=== PATIENT | female | born 1965 | race Caucasian/White ===

== ENCOUNTER 2018-07-11 14:34 | Outpatient (CLI) | payer BC ==
--- NOTE | 2018-07-11 15:54 | RAD ---
RIGHT FOOT RADIOGRAPHS 3 VIEWS: DATE: 07/11/2018. PROVIDED CLINICAL HISTORY: Right foot pain. FINDINGS: There is no evidence for fracture or other acute osseous abnormality. Alignment appears anatomic. J oint spaces appear preserved. Small plantar calcaneal enthesophyte. IMPRESSION: No evidence for an acute osseous abnormality or significant arthropathy. POS: TPC
== END 2018-07-11 14:35 | disposition home or self-care (01) ==
LOC: BICRAD 14:34
PROVIDERS: ATTEND Family Medicine
DX: M79.671 Pain in right foot (principal)

== ENCOUNTER 2018-08-14 08:08 | Outpatient (CLI) | payer BC ==
--- NOTE | 2018-08-14 09:10 | MMO ---
Bilateral MAMMO Bilat Screen [facility]. CLINICAL HISTORY: Patient is 52 years old and is seen for screening. The patient has no family history of breast cancer. The patient has no personal history of cancer. VIEWS: The views performed were: bilateral craniocaudal with tomosynthesis and bilateral mediolateral oblique with tomosynthesis. FILMS COMPARED: The present examination has been compared to prior imaging studies performed at [facility] on 07/19/2011 and 07/22/2013. MAMMOGRAM FINDINGS: There are scattered fibroglandular densities. There are no suspicious masses, calcifications or areas of architectural distortion. IMPRESSION: THERE IS NO MAMMOGRAPHIC EVIDENCE OF MALIGNANCY. A ROUTINE FOLLOW-UP MAMMOGRAM IN 1 YEAR IS RECOMMENDED. THE RESULTS OF THIS EXAM WERE SENT TO THE PATIENT. ACR BI-RADS Category 1 - Negative MAMMOGRAPHY NOTE: 1. A negative mammogram report should not delay a biopsy if a dominant of clinically suspicious mass is present. 2. Approximately 10% to 15% of breast cancers are not detected by mammography. 3. Adenosis and dense breasts may obscure an underlying neoplasm.
== END 2018-08-14 08:09 | disposition home or self-care (01) ==
LOC: BICMAMMO 08:08
PROVIDERS: ATTEND Physician Assistant
DX: Z12.31 Encounter for screening mammogram for malignant neoplasm of breast (principal)
CPT/HCPCS: 77063; 77067

== ENCOUNTER 2018-09-09 14:00 | Outpatient (CLI) | payer BC | END 2018-09-09 14:01 | disposition home or self-care (01) | LOC: DTY/OP 14:00 | PROVIDERS: ATTEND Surgery | DX: E66.01 Morbid (severe) obesity due to excess calories (principal) | CPT/HCPCS: 97802 ==

== ENCOUNTER 2018-10-03 08:00 | Inpatient (IN) | payer BC ==
[2018-10-07] MEDS ORDERED: Fentanyl 100 MCG/2 ML VIAL ONE ×3 (10:45→14:03)
[2018-10-07] MEDS ORDERED: Midazolam HCl 2 mg/2 ml Vial ONE ×2 (10:45→11:01)
[2018-10-07] MEDS ORDERED: Heparin 5,000 UNITS/ML VIAL ONE (11:01)
[2018-10-07] MEDS ORDERED: Bupivacaine/Epinephrine 0.25% 30 ML VIAL ONE ×2 (11:41→12:15)
[2018-10-07] MEDS ORDERED: Propofol 500 MG/50 ML VIAL ONE (11:47)
[2018-10-07] MEDS ORDERED: hydrALAZINE 20 MG/ML VIAL SLOW IVP PRN (13:22)
[2018-10-07] MEDS ORDERED: diphenhydrAMINE 50 MG/ML VIAL IVP PRN ×2 (13:22→14:00)
[2018-10-07] MEDS ORDERED: Ondansetron PF 4 MG/2 ML Vial IVP PRN (13:22)
[2018-10-07] MEDS ORDERED: Hydrocodone-Acetamin 15 ML UDCUP PO PRN ×2 (13:22→14:07)
[2018-10-07] MEDS ORDERED: Dextrose 5% in Water 1,000 ML IV PRN (13:22)
[2018-10-07] MEDS ORDERED: Promethazine HCl 25 MG/ML VIAL IM PRN ×4 (13:22→14:00)
[2018-10-07] MEDS ORDERED: Dextrose 50% Abboject 50 ML SYRINGE SLOW IVP PRN (13:22)
[2018-10-07] MEDS ORDERED: Promethazine HCl 25 MG/ML VIAL ONE (13:34)
[2018-10-07] MEDS ORDERED: Ondansetron PF 4 MG/2 ML Vial ONE (13:58)
[2018-10-07] MEDS ORDERED: Ondansetron HCl/PF 4 MG/2 ML Vial IVP PRN ×2 (13:59→14:00)
[2018-10-07] MEDS ORDERED: Promethazine HCl 25 MG/ML VIAL SLOW IVP PRN ×2 (13:59→14:00)
[2018-10-07] MEDS ORDERED: diphenhydrAMINE 50 MG/ML VIAL IM PRN (14:00)
[2018-10-07] MEDS ORDERED: fentaNYL Citrate/PF 2,000 MCG in Sodium Chloride 0.9% 60 ML IV PRN (14:00)
[2018-10-07] MEDS ORDERED: diphenhydrAMINE 25 MG CAP PO PRN (14:00)
[2018-10-07] MEDS ORDERED: Communication Order-Pharmacy FS SCH (14:00)
[2018-10-07] MEDS ORDERED: Naloxone HCl 0.4 mg/ml Vial IV PRN (14:00)
[2018-10-07] MEDS ORDERED: Zolpidem Tartrate 5 MG TAB PO PRN ×2 (14:00→14:24)
[2018-10-07] MEDS ORDERED: D5 1/2 NS w/20 mEq KCL 1,000 ML ONE (14:41)
[2018-10-07] MEDS: D5 1/2 NS w/20 mEq KCL 1,000 ML IV SCH ×2 (15:05→20:08)
[2018-10-07 17:06] VITALS: BMI 44.9
[2018-10-07] MEDS: Ketorolac Tromethamine 30 MG/ML VIAL IVP SCH ×2 (18:23→23:58)
[2018-10-07] MEDS: CEFAZOLIN 2 GM in Premix Bag 1 BAG IVPB SCH (20:05)
[2018-10-07] MEDS: Ondansetron PF 4 MG/2 ML Vial IVP PRN (22:08)
[2018-10-08] MEDS: CEFAZOLIN 2 GM in Premix Bag 1 BAG IVPB SCH (04:15)
[2018-10-08] MEDS: Ondansetron PF 4 MG/2 ML Vial IVP PRN (04:15)
[2018-10-08] MEDS: Ketorolac Tromethamine 30 MG/ML VIAL IVP SCH ×4 (06:19→23:36)
[2018-10-08] MEDS: D5 1/2 NS w/20 mEq KCL 1,000 ML IV SCH ×3 (06:25→20:55)
[2018-10-08 06:45] LABS: #Lymphocytes 1.6 thou/uL (1.20-3.40); #Monocytes 0.6 thou/uL (0.11-0.59); %Eosinophils 0.2 % (0.0-10.0); %Lymphocytes 13.9 % (21.0-51.0); %Monocytes 5.6 % (0.0-10.0); %Neutrophils 80.3 % (42.0-75.0); Hemoglobin 13.6 g/dL (12.0-16.0); Mean Corpuscular HGB CONC 32.3 g/dL (32.0-36.0); Mean Corpuscular Hemoglobin 28.4 pg (27.0-31.0); Mean Platelet Volume 9.1 fL (7.4-10.4); Platelet Count 199 thou/uL (130-400); RBC Distribution Width 11.9 % (11.5-14.5); Red Blood Cell (RBC) Count 4.81 mill/uL (4.20-5.40); White Blood Cell (WBC) Count 11.2 thou/uL (4.8-10.8)
[2018-10-08 07:10] LABS: Anion Gap 16 mmol/L (10-20); BUN (Urea Nitrogen) 12 mg/dL (9.8-20.1); Calc. Creatinine Clearance 146 mL/min (70-130); Calcium 9.7 mg/dL (7.8-10.44); Carbon Dioxide 22 mmol/L (22-29); Chloride 104 mmol/L (98-107); Estimated GFR-MDRD 81; Glucose 113 mg/dL (70-105); Potassium 4.7 mmol/L (3.5-5.1); Sodium 137 mmol/L (136-145)
--- NOTE | 2018-10-08 08:14 | OP ---
DATE OF PROCEDURE: 10/07/2018 PREOPERATIVE DIAGNOSIS: Morbid obesity. PROCEDURES PERFORMED: Laparoscopic sleeve gastrectomy with esophagogastroscopy. INDICATIONS: A 53-year-old female morbidly obese, who has attempted multiple weight loss programs without success. She has had a previous open cholecystectomy. FINDINGS: Moderate adhesions. A 38-Wallisian bougie used. DESCRIPTION OF PROCEDURE: After informed consent was obtained, the patient was taken to the operating room, given general endotracheal anesthesia, placed in supine position. Abdomen was prepped and draped in usual fashion. Local anesthesia infiltrated subcutaneously and deep and a 12 mm incision was performed approximately 8 inches above the xiphoid slightly to the left. Veress needle inserted, drop test performed. Pneumoperitoneum was created to a volume of 2 L of carbon dioxide. Utilizing a bladeless 12 mm trocar and 0-degree laparoscope, direct visual entry abdominal cavity was performed. Pneumoperitoneum was created to a pressure of 15 mmHg and the patient placed in steep reverse Trendelenburg position. Mello liver retractor inserted. Left lobe of liver retracted superiorly. The right side was full of adhesions. So, two 12 mm ports were placed left subcostal and a laparoscopic lysis of adhesion was performed. Once the right abdominal wall was freed up, a fourth 12 mm port was placed on the right beneath the pylorus. The omentum was taken off the greater curvature 5 cm from the pylorus utilizing the LigaSure. Short gastrics divided with LigaSure and left crura defined with LigaSure. A 38-Wallisian bougie inserted directed into the antrum. The linear 60 mm green load stapler used to divide the antrum to the bougie, gold load along the bougie, and a series of blues through the angle of His. Intraoperative endoscopy was performed. The videoendoscope inserted under direct vision and advanced into the sleeve. Staple line inspected. There was no bleeding. Staple line then tested by inflating the new stomach with pressurized air under water, there was no air leak. Stomach decompressed. Scope removed. The remnant of stomach removed from the abdomen through the left lateral port site. Fascia closed with interrupted 0 Vicryl suture. The skin closed with interrupted 4-0 Rapide. Dermabond applied. The patient tolerated the procedure well, transferred to Recovery in good condition. Sponge and needle count verified correct x2. Job ID: [id number]
--- NOTE | 2018-10-08 08:32 | RAD ---
Exam: 15 mL Gastrografin swallow HISTORY: Postoperative day one; gastric sleeve FINDINGS: There is delayed passage of the Gastrografin from the distal esophagus into the gastric rem nant. Even after 10 minutes, there is still oral contrast present in the esophagus. The small amount of contrast that does opacify the stomach does not demonstrate any leak or extravasation. Eval uation is limited due to inadequate opacification of the gastric retention. IMPRESSION: Delayed passage. Consider repeat imaging after edema decreases. Exposure: 2 minutes. 0.338 moraes per centimeter square
[2018-10-08] MEDS: Enoxaparin Sodium 40 MG/0.4 ML SYRINGE SC SCH (09:02)
[2018-10-08] MEDS: Pantoprazole 40 MG VIAL IVP SCH (09:02)
--- NOTE | 2018-10-08 13:12 | PRG ---
DATE OF SERVICE: 10/08/2018 SUBJECTIVE: The patient is having quite a bit of trouble with taking in much p.o. She is getting a little bit in, but not enough to go home. OBJECTIVE: VITAL SIGNS: Her temperature 97.7, pulse 60, and blood pressure 108/64. GENERAL: She is awake and alert. ABDOMEN: Incisions look good. : Urine output is good. LABORATORY DATA: White count 11.2, hemoglobin and hematocrit are 13 and 42, and platelet count 199. Electrolytes are okay. Elevated glucose at 113. Her swallow study showed a lot of edema at the esophagogastric junction. ASSESSMENT: Postoperative edema preventing adequate fluid intake. PLAN: We will give her another day in the hospital. Continue IV fluids. Job ID: [id number]
[2018-10-09] MEDS: Ketorolac Tromethamine 30 MG/ML VIAL IVP SCH ×3 (05:40→17:16)
[2018-10-09] MEDS: D5 1/2 NS w/20 mEq KCL 1,000 ML IV SCH ×2 (05:40→09:43)
[2018-10-09] MEDS: Enoxaparin Sodium 40 MG/0.4 ML SYRINGE SC SCH (09:40)
[2018-10-09] MEDS: Pantoprazole 40 MG VIAL IVP SCH (09:42)
[2018-10-09 16:12] VITALS: BP 94/61; TEMP 97.3
--- NOTE | 2018-10-09 16:50 | CON ---
DATE OF CONSULTATION: 10/09/2018 REASON FOR CONSULTATION: Bradycardia. PRIMARY ORGANIZATIONAL DEVELOPMENT SPECIALIST: Herberth Colón MD. HISTORY OF PRESENT ILLNESS: Ms. Nubia Robles is a very pleasant 53-year-old white female, who comes to the hospital for a planned bariatric surgery. She had this performed by Dr. Lee yesterday. Today she is feeling fatigued and tired. It is noticed on vital signs that her heart rate has been in the low 40s, so Cardiology was consulted for this. Looking back, her heart rate has been in the low 60s to low 50s throughout her hospital stay. On my evaluation, she denies any chest pain, tightness, pressure. No shortness of breath. She has been walking around without issues. She has to force herself to do things to try to rehab some from the surgery. She states that she is usually not this tired. She denies any other issues for now. PAST MEDICAL HISTORY: Anxiety, depression. SURGICAL HISTORY: 1. Tonsillectomy. 2. Cholecystectomy. 3. Tubal ligation. 4. Hysterectomy. 5. x2. OUTPATIENT MEDICATIONS: 1. BuSpar 10 mg b.i.d. 2. Zoloft 100 mg a day. ALLERGIES: NO KNOWN DRUG ALLERGIES. SOCIAL HISTORY: No alcohol, no tobacco or drugs. FAMILY HISTORY: Noncontributory. REVIEW OF SYSTEMS: A 12-point review of systems was done and was found to be negative unless stated in the history of present illness. PHYSICAL EXAMINATION: VITAL SIGNS: Temperature 97.3, pulse 51, respiratory rate 18, saturating 100% on room air, and blood pressure 94/61. GENERAL: Awake, alert, oriented x3. No distress. HEENT: Normocephalic atraumatic. NECK: Supple. LUNGS: Clear. CARDIOVASCULAR: S1 and S2. No S3 or S4. No murmurs or rubs. ABDOMEN: Soft. Positive bowel sounds. EXTREMITIES: No edema. SKIN: Warm and dry. LABORATORY DATA: Laboratory work was reviewed. White count of 11, hemoglobin of 13, hematocrit 42, platelet count of 199. Chemistries unremarkable. Glucose was 113. ASSESSMENT AND PLAN: 1. Bradycardia, sinus. Asymptomatic. 2. Status post gastric sleeve. 3. Anxiety and depression. PLAN: 1. Currently her heart rate is in the low 50s. It goes up to the low 60s when she walks around. She is in sinus bradycardia, mostly asymptomatic. She is not syncopal or presyncopal. She only feels tired. This could be related to her bradycardia. However, no indication for pacemaker at this time. We would recommend she be discharged home today. She will come to my office tomorrow and get a [employer] monitor for 1 week to make sure that she is not dropping too much and that her heart rate actually goes back to where it has been in the past in the 70s. 2. She may be discharged home today with no further cardiac workup. 3. We will get an echocardiogram next week as an outpatient. Thank you for letting me to participate in the care of your patient. We will sign off. Please call with any questions. Job ID: [id number]
--- NOTE | 2018-10-10 03:04 | DIS ---
DATE OF ADMISSION: 10/07/2018 DATE OF DISCHARGE: 10/09/2018 DISCHARGE DIAGNOSES: Morbid obesity. She had some postoperative bradycardia. PROCEDURES DURING ADMISSION: Laparoscopic sleeve gastrectomy, intraoperative esophagogastroscopy, and postoperative Gastrografin swallow. HOSPITAL COURSE: The patient was admitted, taken to the operating room where she underwent sleeve. Postoperatively, she did well. Her swallow study showed some slowing, delay in passage. She had trouble staying hydrated the first night, so she spend an extra night. Following day, she did a lot better, but her heart rate dropped down in the 40s, so cardiology was consulted. They stated she was fine. She is discharged home on hydrocodone and Zofran. She will follow up with me in 2 weeks. Job ID: [id number]
== END 2018-10-09 18:10 | disposition home or self-care (01) | DRG 620 ==
LOC: SURG A 10-07 09:57
PROVIDERS: ADMIT Surgery; ATTEND Surgery
PROC: 0DB64Z3 Excision of Stomach, Percutaneous Endoscopic Approach, Vertical (ICD-10-PCS; principal; 2018-10-07)
PROC: 0DJ08ZZ Inspection of Upper Intestinal Tract, Via Natural or Artificial Opening Endoscopic (ICD-10-PCS; 2018-10-07)
DX: E66.01 Morbid (severe) obesity due to excess calories (principal); I97.191 Other postprocedural cardiac functional disturbances following other surgery; F32.9 Major depressive disorder, single episode, unspecified; F41.9 Anxiety disorder, unspecified; Z90.710 Acquired absence of both cervix and uterus; Z88.8 Allergy status to other drugs, medicaments and biological substances; Z90.49 Acquired absence of other specified parts of digestive tract; Z68.42 Body mass index [BMI] 45.0-49.9, adult; Z98.51 Tubal ligation status
CPT/HCPCS: 36415; 74241; 80048; 85025; 88307; 88312; 93005; 93010; C9113; J0690; J1644; J1650; J1885; J2250; J2405; J2550; J2704; J3010; J3490

== ENCOUNTER 2018-10-03 10:00 | Outpatient (CLI) | payer BC ==
[2018-10-03 10:49] LABS: #Basophils 0.1 thou/uL (0.0-0.2); #Eosinphils 0.1 thou/uL (0.0-0.7); #Lymphocytes 2.2 thou/uL (1.20-3.40); #Monocytes 0.3 thou/uL (0.11-0.59); #Neutrophils 4.9 thou/uL (1.40-6.50); %Basophils 1.1 % (0.0-1.0); %Eosinophils 1.4 % (0.0-10.0); %Lymphocytes 29.4 % (21.0-51.0); %Monocytes 4.3 % (0.0-10.0); %Neutrophils 63.8 % (42.0-75.0); Hemoglobin 15.2 g/dL (12.0-16.0); Mean Corpuscular HGB CONC 32.3 g/dL (32.0-36.0); Mean Corpuscular Hemoglobin 27.9 pg (27.0-31.0); Mean Corpuscular Volume 86.5 fL (78.0-98.0); Mean Platelet Volume 8.6 fL (7.4-10.4); Platelet Count 206 thou/uL (130-400); Red Blood Cell (RBC) Count 5.43 mill/uL (4.20-5.40); White Blood Cell (WBC) Count 7.6 thou/uL (4.8-10.8)
--- NOTE | 2018-10-03 11:01 | RAD ---
EXAM: Two views chest PROVIDED CLINICAL HISTORY: Preoperative evaluation COMPARISON: 10/29/2014 FINDINGS: Cardiac silhouette and pulmonary vasculature are within normal limits. The lungs are clear. Degenera tive changes are again seen in the spine. Surgical clips again overlie the right upper quadrant. IMPRESSION: No acute cardiopulmonary process. Chest is stable compared to prior exam.
[2018-10-03 11:03] LABS: Hemoglobin A1c 4.7 % (4.0-6.0)
[2018-10-03 11:15] LABS: ALT (SGPT) 34 U/L (8-55); AST (SGOT) 26 U/L (5-34); Albumin 4.8 g/dL (3.5-5.0); Alkaline Phosphatase 123 U/L (40-150); Anion Gap 13 mmol/L (10-20); BUN (Urea Nitrogen) 25 mg/dL (9.8-20.1); Bilirubin, Direct 0.3 mg/dL (0.1-0.3); Bilirubin, Total 0.6 mg/dL (0.2-1.2); Calc. Creatinine Clearance 0 mL/min (70-130); Calcium 10.3 mg/dL (7.8-10.44); Carbon Dioxide 27 mmol/L (22-29); Chloride 102 mmol/L (98-107); Estimated GFR-MDRD 68; Globulin 4.1 g/dL (2.4-3.5); Glucose 83 mg/dL (70-105); Potassium 4.3 mmol/L (3.5-5.1); Protein, Total 8.9 g/dL (6.0-8.3); Sodium 138 mmol/L (136-145)
== END 2018-10-03 10:01 | disposition home or self-care (01) ==
LOC: LABBT 10:00
PROVIDERS: ATTEND Surgery
DX: Z01.818 Encounter for other preprocedural examination (principal); E66.01 Morbid (severe) obesity due to excess calories
CPT/HCPCS: 71046; 80053; 80076; 83036; 85025

== ENCOUNTER 2025-05-13 15:26 | Outpatient (CLI) | payer OTHER | END 2025-05-13 15:27 | disposition home or self-care (01) | LOC: SCSRAD 15:26 | DX: R07.89 Other chest pain (principal) | CPT/HCPCS: 71046 ==